=== PATIENT | female | born 1960 | race Caucasian/White ===

== ENCOUNTER 2017-02-25 16:26 | Inpatient (IN) | payer MEDICAID ==
[2017-02-25 17:19] LABS: BASOPHILS 0.3 % (0-2); EOSINOPHILS 2.1 % (0-7); HEMATOCRIT 36.2 % (36.0-48.0); IMMATURE GRANULOCYTES 0.2 % (0-5); LYMPHOCYTES 13.4 % (15-50); MCH 33.9 pg (26.0-34.0); MCHC 33.1 g/dL (31.0-37.0); MCV 102.3 fL (80.0-100.0); MEAN PLATELET VOLUME 9.3 fL (7.4-10.4); MONOCYTES 4.8 % (2-11); NEUTROPHILS 79.2 % (40-80); RBC 3.54 10x6/uL (4.00-5.40); RDW 12.7 % (11.5-14.5); WBC 14.5 10x3/uL (4.8-10.8)
[2017-02-25 17:20] LABS: UDS - AMPHET NEGATIVE QUAL (NEGATIVE); UDS - BARB NEGATIVE QUAL (NEGATIVE); UDS - BENZO POSITIVE QUAL (NEGATIVE); UDS - COCAINE NEGATIVE QUAL (NEGATIVE); UDS - OPIATE POSITIVE QUAL (NEGATIVE); UDS - PCP NEGATIVE QUAL (NEGATIVE); UDS - THC NEGATIVE QUAL (NEGATIVE)
[2017-02-25 17:23] LABS: APPEARANCE HAZY (CLEAR); BILIRUBIN NEGATIVE (NEGATIVE); COLOR YELLOW (YELLOW); GLUCOSE NEGATIVE (NEGATIVE); KETONE NEGATIVE (NEGATIVE); NITRITE POSITIVE (NEGATIVE); PROTEIN TRACE mg/dL (NEGATIVE); SPECIFIC GRAVITY 1.015 (1.005-1.020); UROBILINOGEN NORMAL (NORMAL)
[2017-02-25 17:23] LABS: PLATELET COUNT 389 10x3/uL (130-400)
[2017-02-25 17:24] LABS: BACTERIA MANY /hpf (NONE SEEN); EPITHELIAL CELLS 0-5 /hpf (0-5); RED CELLS - URINE 0-5 /hpf (0-5); WHITE CELLS - URINE >50 /hpf (0-5)
[2017-02-25 17:35] LABS: ALBUMIN 3.8 g/dL (3.4-5.0); ANION GAP 11.4 mmol/L (8-16); BILIRUBIN - TOTAL 0.21 mg/dL (0.2-1.3); CALCIUM 9.1 mg/dL (8.5-10.1); CARBON DIOXIDE 27.4 mmol/L (21.0-32.0); CREATININE - SERUM 1.6 mg/dL (0.6-1.3); POTASSIUM - SERUM 4.8 mmol/L (3.5-5.1); PROTEIN - SERUM 8.3 g/dL (6.4-8.2)
[2017-02-25] MEDS ORDERED: NEURONTIN 300300 MG PO (20:32)
[2017-02-25] MEDS ORDERED: NORVASC5 MG PO (20:33)
[2017-02-25] MEDS ORDERED: LEVOTHYROXINE100 MCG PO (20:33)
--- NOTE | 2017-02-25 21:25 | NUR ---
REC'D FROM [facility] IN ER. ALERT AND ORIENTED X2. REPORTING A HEADACHE. COULD NOT GIVE ME THE BEST HISTORY FOR DOCUMENTATION WILL PASS ON TO DAYS. STATED "I FEEL FUZZY" HAS A IV TO THE LEFT HAND THAT IS SALINE LOCKED. HAS A TOUNGE RING IN MOUTH. WAS ABLE TO GET TO THE RESTROOM WITH ASSISTANCE. NO DISTRESS NOTED. VITALS WERE 150/81, 96.2AX, 88, 16, 100% ONCE SHE GOT TO THE FLOOR. DENIED NEEDS AT THIS TIME. INSTRUCTED ON HOW TO USE THE CALL LIGHT AND TO CALL IF NEEDED ANYTHING, VERBALIZED UNDERSTANDING. BED LOW, LOCKED, CALL LIGHT IN REACH, ALARM ON.
--- NOTE | 2017-02-25 23:36 | NUR ---
RIPPED IV OUT OF LEFT HAND, CATHETER STILL INTACT, PLACED BANDAGE ON LEFT HAND. THERE IS NOW A 22G TO RIGHT FOREARM, IS PATENT AND IS SALINED LOCKED. TOLERATED WELL. INSTRUCTED THE IMPORTANCE OF KEEPING IT IN, VERBALIZED UNDERSTANDING. NO DISTRESS NOTED. BED LOW, LOCKED, CALL LIGHT IN REACH, ALARM ON.
[2017-02-26] VITALS (7 sets, daily range): BP systolic 121–150; BP diastolic 52–90; BMI 26.7; BMI 26.6
--- NOTE | 2017-02-26 03:25 | NUR ---
WAS MOANING, CHECKED ON HER IS ORIENTED TO PERSON, PLACE, AND SITUATION. HAS ONLY VOMITED ONCE MORE SINCE COMING ONTO THE FLOOR. NO DISTRESS NOTED. WILL CONT TO MONITOR. BED LOW, LOCKED, CALL LIGHT IN REACH, ALARM ON.
--- NOTE | 2017-02-26 08:05 | NUR ---
PATIENT IS RESTING QUIETLY WITH HER EYES CLOSED. NO S/S OF DISTRESS NOTED. PATIENT AWAKENS TO VERBAL STIMULI. PATIENT IS ORIENTED TO PERSON, PLACE, TIME, AND SITUATION. PATIENT STATES SHE IS VERY SLEEPY AND TIRED. PATIENT FALLING ASLEEP DURING ANY CONVERSATION. ASSESSMENT COMPLETED. SEE FLOWSHEET FOR ANY DETAILS. PATIENT DENIES NEEDS AT PRESENT TIME. CALL LIGHT IN PATIENT'S REACH. WILL MONITOR PATIENT.
--- NOTE | 2017-02-26 13:50 | NUR ---
PATIENT RESTING IN HER BED. PATIENT STATES SHE IS COLD. HEAT TURNED UP IN HER ROOM. SCHEDULED MEDICATIONS GIVEN TO PATIENT. PATIENT TOLERATED WELL. PATIENT STATES HER MOUTH IS REAL DRY AND REQUESTS A DRINK. LEMON GUIDIVILLE SODA GIVEN TO PATIENT IN HER LEFT HAND. PATIENT MOVING HER MOUTH UP AND DOWN AND WAVING HER RIGHT HAND. I ASKED PATIENT WHAT WAS WRONG OR IF SHE NEEDED ANYTHING AND SHE STATED THAT SHE NEEDED A DRINK. VERBALIZED TO PATIENT THAT SHE WAS HOLDING HER DRINK IN HER LEFT HAND. PATIENT LOOKED UP AT ME AND SAID, "OH", AND PUT DRINK TO HER MOUTH BUT HAD TROUBLE GETTING THE STRAW TO HER MOUTH. ASSISTED PATIENT WITH HER DRINK. CALL LIGHT IN PATIENT'S REACH. WILL CONTINUE TO MONITOR PATIENT.
--- NOTE | 2017-02-26 21:18 | NUR ---
REC'D SITTING UP IN BED. ALERT AND ORIENTED X3. DENIED PAIN AT THIS TIME. NO DISTRESS NOTED. DENIED NEEDS AT THIS TIME. INSTRUCTED TO CALL IF NEEDED ANYTHING, VERBALIZED UNDERSTANDING. BED LOW, LOCKED, CALL LIGHT IN REACH. NO DISTRESS NOTED.
[2017-02-27] VITALS: BP 148/79
--- NOTE | 2017-02-27 03:00 | NUR ---
PT RESTING QUIETLY, EYES CLOSED. RESP EVEN, UNLABORED. NO DISTRESS NOTED. CONTINUE STOREKEEPER STEWARD'S PLAN OF CARE.
[2017-02-27 04:00] VITALS: BP 133/78
[2017-02-27 05:19] LABS: BASOPHILS 0.6 % (0-2); EOSINOPHILS 2.7 % (0-7); HEMATOCRIT 34.3 % (36.0-48.0); HEMOGLOBIN 11.7 g/dL (12-16); IMMATURE GRANULOCYTES 0.2 % (0-5); LYMPHOCYTES 38.6 % (15-50); MCH 34.2 pg (26.0-34.0); MCHC 34.1 g/dL (31.0-37.0); MCV 100.3 fL (80.0-100.0); MEAN PLATELET VOLUME 9.7 fL (7.4-10.4); MONOCYTES 6.4 % (2-11); NEUTROPHILS 51.5 % (40-80); PLATELET COUNT 380 10x3/uL (130-400); RBC 3.42 10x6/uL (4.00-5.40); RDW 12.8 % (11.5-14.5); WBC 9.7 10x3/uL (4.8-10.8)
[2017-02-27 05:41] LABS: ALBUMIN 3.4 g/dL (3.4-5.0); BILIRUBIN - TOTAL 0.2 mg/dL (0.2-1.3); CARBON DIOXIDE 26.9 mmol/L (21.0-32.0); CREATININE - SERUM 1.2 mg/dL (0.6-1.3); PROTEIN - SERUM 7.5 g/dL (6.4-8.2)
[2017-02-27 05:42] LABS: ANION GAP 12.8 mmol/L (8-16); POTASSIUM - SERUM 3.7 mmol/L (3.5-5.1)
--- NOTE | 2017-02-27 07:25 | NUR ---
PATIENT IS RESTING QUIETLY ON HER RIGHT SIDE. EYES ARE CLOSED. RESPIRATIONS ARE EVEN AND UNLABORED. CALL LIGHT IN PATIENT'S REACH. GEOVANNA ALARM ON FOR PATIENT'S SAFETY. WILL MONITOR PATIENT.
--- NOTE | 2017-02-27 11:52 | NUR ---
PATIENT RESTING WITH HER EYES CLOSED. AWAKENS EASILY TO VERBAL STIMULI. SCHEDULED CELEXA 20 MG PO GIVEN TO PATIENT. PATIENT TOLERATED WELL WITH TEA. PATIENT DENIES NEEDS AT PRESENT TIME. GEOVANNA ALARM ON FOR PATIENT'S SAFETY. CALL LIGHT IN PATIENT'S REACH. WILL MONITOR.
[2017-02-27 12:09] VITALS: BP 134/76
--- NOTE | 2017-02-27 18:00 | NUR ---
PATIENT UP WALKING AROUND IN HER ROOM WITH JUST A HOT PINK T-SHIRT ON. PATIENT STATES SHE NEEDS TO GO TO THE BATHROOM. BLOOD NOTED ON PATIENT'S RIGHT ARM. PATIENT'S IV WAS NOT IN HER ARM, IT WAS IN THE FLOOR. PATIENT'S PURSE WAS LYING IN THE FLOOR BESIDE HER BED. ASSISTED PATIENT TO THE BATHRROM WHERE PATIENT VOIDED AND HAD A SMALL BM. PATIENT ORIENTED TO WHERE SHE WAS AT, BUT RESPONDING VERY SLOWLY TO QUESTIONS ASKED. ASSISTED PATIENT WHEN LOOKING FOR TOILET PAPER. PATIENT TOOK TOILET PAPER RADIOGRAPHER ANGIOGRAM OUT OF THE TRASH CAN AND STARTED WIPING HER BUTTOCKS WITH IT. VERBALIZED TO PATIENT THAT SHE HAD ALREADY WIPED HER JOYA AREA AND BUTTOCKS AND THAT SHE NOW WAS USING TRASH OUT OF THE TRASH CAN. PATIENT SHOOK HER HEAD AND LOOKED AT ME WITH A BLANK STARE. HOSPITAL SCRUB PANTS PROVIDED FOR PATIENT TO WEAR. ASSISTED PATIENT BACK TO HER BED AND HANDED HER PURSE AND BELONGINGS TO HER. DINNER TRAY AT PATIENT'S BEDSIDE. PATIENT STATES SHE DOES NOT WANT ANYTHING TO EAT OR DRINK. CALL LIGHT IN PATIENT'S REACH. GEOVANNA ALARM ON FOR PATIENT'S SAFETY. WILL MONITOR PATIENT.
--- NOTE | 2017-02-27 18:52 | NUR ---
IV RESITED TO L FOREARM. X1 ATTEMPT WITH 20 GUAGE IV. TOLERATED WELL. SECURED WITH TEGADERM AND TAPE. BED LOW, CALL LIGHT IN REACH, DENIES NEEDS. CPOC.
[2017-02-27 20:00] VITALS: BP 150/94
--- NOTE | 2017-02-27 22:05 | NUR ---
REC'D SITTING UP IN BED. ALERT AND ORIENTED TO PERSON, PLACE, AND TIME. REPORTED HAVING GENERALIZED PAIN ALL OVER BODY. DENIED NEEDS AT THIS TIME. INSTRUCTED TO CALL IF NEEDED ANYTHING, VERBALIZED UNDERSTANDING. PLACED BOX ALARM ON HER. NO DISTRESS NOTED. WILL CONT TO MONITOR. BED LOW, LOCKED, CALL LIGHT IN REACH, ALARM ON.
[2017-02-28 04:00] VITALS: BP 136/102
[2017-02-28 05:03] LABS: BASOPHILS 0.6 % (0-2); EOSINOPHILS 2.3 % (0-7); HEMATOCRIT 37.2 % (36.0-48.0); HEMOGLOBIN 12.6 g/dL (12-16); IMMATURE GRANULOCYTES 0.2 % (0-5); LYMPHOCYTES 37.9 % (15-50); MCHC 33.9 g/dL (31.0-37.0); MCV 100.3 fL (80.0-100.0); MEAN PLATELET VOLUME 9.6 fL (7.4-10.4); MONOCYTES 8.9 % (2-11); NEUTROPHILS 50.1 % (40-80); PLATELET COUNT 381 10x3/uL (130-400); RBC 3.71 10x6/uL (4.00-5.40); RDW 12.7 % (11.5-14.5); WBC 11.1 10x3/uL (4.8-10.8)
[2017-02-28 05:50] LABS: ALBUMIN 3.5 g/dL (3.4-5.0); ANION GAP 16.3 mmol/L (8-16); BILIRUBIN - TOTAL 0.25 mg/dL (0.2-1.3); CALCIUM 9.2 mg/dL (8.5-10.1); CARBON DIOXIDE 25.4 mmol/L (21.0-32.0); CREATININE - SERUM 1.3 mg/dL (0.6-1.3); POTASSIUM - SERUM 3.7 mmol/L (3.5-5.1); PROTEIN - SERUM 8.2 g/dL (6.4-8.2)
--- NOTE | 2017-02-28 07:35 | NUR ---
PATIENT IN BED EYES CLOSED RESTING QUIETLY. NO COMPLAINTS AT THIS TIME. IV INTACT. CALL LIGHT WITHIN REACH.
[2017-02-28 08:30] VITALS: BP 158/95
--- NOTE | 2017-02-28 08:30 | NUR ---
PATIENT IN BED WITH IV INTACT. NO COMPLAINTS AT THIS TIME. CALL LIGHT WITHIN REACH. FAMILY AT [facility].
--- NOTE | 2017-02-28 11:30 | NUR ---
PATIENT SITTING UP IN BED WITH NO COMPLAINTS. IV INTACT. CALL LIGHT WITHIN REACH.
[2017-02-28 13:25] VITALS: BP 140/77
[2017-02-28 16:00] VITALS: BP 129/77
--- NOTE | 2017-02-28 19:20 | NUR ---
RECIEVED SHIFT REPORT. PT IS LYING IN BED. ALERT AND ORIENTED AND ABLE TO VERBALIZE NEEDS. IV IS PATENT AND SALINE LOC AT THIS TIME. SCD'S OFF PER PT REQUEST. PT DENIES ANY PAIN AT THIS TIME. PT IS AMBULATORY BUT WAS INSTRUCTED TO CALL FOR ANY ASSISTANCE NEEDED. NO NEEDS ARE VERBALIZED AT THIS TIME. WILL CONTINUE TO MONITOR. SIDE RAILS ARE UP X 2. BED IS IN LOWEST POSITION. CALL LIGHT IS WITHIN REACH.
[2017-02-28 20:00] VITALS: BP 131/81
--- NOTE | 2017-02-28 20:25 | NUR ---
SHIFT ASSESSMENT COMPLETED. NIGHT MEDS GIVEN WITH NO PROBLEMS. NO NEEDS ARE VOICED. WILL MONITOR. SIDE RAILS X 2. BED LOW. CALL LIGHT IN REACH.
[2017-03-01 04:00] VITALS: BP 146/78
[2017-03-01 05:08] LABS: BASOPHILS 0.7 % (0-2); EOSINOPHILS 3.3 % (0-7); HEMATOCRIT 35.5 % (36.0-48.0); IMMATURE GRANULOCYTES 0.3 % (0-5); LYMPHOCYTES 42.1 % (15-50); MCH 33.9 pg (26.0-34.0); MCHC 33.8 g/dL (31.0-37.0); MCV 100.3 fL (80.0-100.0); MEAN PLATELET VOLUME 10.1 fL (7.4-10.4); MONOCYTES 10.5 % (2-11); NEUTROPHILS 43.1 % (40-80); PLATELET COUNT 323 10x3/uL (130-400); RBC 3.54 10x6/uL (4.00-5.40); RDW 12.7 % (11.5-14.5); WBC 11.5 10x3/uL (4.8-10.8)
[2017-03-01 05:28] LABS: ALBUMIN 3.4 g/dL (3.4-5.0); ANION GAP 16.2 mmol/L (8-16); BILIRUBIN - TOTAL 0.3 mg/dL (0.2-1.3); CALCIUM 9.4 mg/dL (8.5-10.1); CARBON DIOXIDE 25.5 mmol/L (21.0-32.0); CREATININE - SERUM 1.4 mg/dL (0.6-1.3); POTASSIUM - SERUM 3.7 mmol/L (3.5-5.1); PROTEIN - SERUM 7.3 g/dL (6.4-8.2)
--- NOTE | 2017-03-01 08:00 | NUR ---
PT ASSESSMENT COMPLETE AWAKE AND ALERT ORINETD X 3 LUNGS CLAER BILATERALLY HAS NO DISTRESS NTOED SEE FLOWSHEET FOR COMPLETE PHYSICAL ASSESSMENT.
[2017-03-01 08:25] VITALS: BP 116/71
--- NOTE | 2017-03-01 09:30 | NUR ---
IN ROOM TO GIVE MEDS PT ASKS THIS NURSE "HOW MUCH DRUGS WERE IN MY SYSTEM" EXPLAINED TO PT THAT A TOX SCREEN IS MEASURED IN MG PER DECILITER. AND IT IS A PERCENTAGE THIS NURSE IS UNABLE TO GIVE A SPICIFIC NUMBER OF PILLS TAKEN. PT EXPRESSD UNDERSANDING. UPON TALKING WITH PT SHE STATED THAT IT WAS "POSSIBLE" THAT SHE MIGHT HAVE BEEN HAVING A BAD DAY AND BOUGHT SOME PILLS FOR A PICK ME UP. PT ALSO STATED THAT IT IS SOMETHING SHE HAS DONE IN THE PAST. THIS NURSE SPOKE AT LENGTH WITH PT ABOUT ADDICTION AND RECOVERY ALSO ABOUT COPING. 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 EXPLAINED TO PT THAT ITS A GOOD THING TO LEAN TO ANN FOR COPING AND STRENGTH. PT STATES THAT SHE IS GLAD AT LEAST NOW SHES NOT ACCUSING PEOPLE OF DOING THINGS THAT ARE NOT REAL. THIS INFORMATION WAS PASSED TO NURSE PRACTIONER AND TO CASE MANAGMENT
--- NOTE | 2017-03-01 09:36 | NUR ---
Patient Name: SUSAN BAKER Admission Status: ER Accout number: [id number] Admission Date: 02-27-2017 : 1960 Admission Diagnosis: Attending: COLIN PALAFOX Current LOS: 2 Anticipated DC Date: Planned Disposition: Home Primary Insurance: [place] PRIVATE OPTIONS DARBY Discharge Planning Comments: CM met with patient to assess discharge planning needs. Patient stated that she is an employee who works and lives at [facility]. CM called and verified with Lamar the HR person at [facility]. Patient stated that she does not have any clue to how those drugs got in her system. She said others have access to her locked room, but she was not blaming anyone. She stated that she was going to talk to the police today. She has worked there for about a year per Lamar (HR at [facility]) and her title is [employer]. She said she was told that she was asleep for 2 days in her chair, and all she remembers was getting Narcan. 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 CM will talk MD to see how to proceed. She did state that she has too much to live for and she did not try to kill herself. CM will continue to follow and assist with discharge planning needs. PCP: Sheri Chowdhury on [address] [facility] Taryn Leiva ([phone]) Friend Nuclear Physics Teacher: Ping Valentin * Is the patient Alert and Oriented? Yes 0 * PCP SHERI 0 * [facility] * Preadmission Environment Snf 0 * Facility Name [facility] (WORKS AND LIV[facility] THERE) 0 * ADLs Independent 0 * Equipment None 0 * Community resources currently utilized None 0 * Additional services required to return to the preadmission environment? Yes 0 * Can the patient safely return to the preadmission environment? Yes 0 * Has this patient been hospitalized within the prior 30 days at any hospital? No 0 Grand Total: 0
[2017-03-01] MEDS ORDERED: CELEXA20 MG PO (10:55)
[2017-03-01] MEDS ORDERED: LEVAQUIN500 MG PO (10:56)
[2017-03-01] MEDS ORDERED: DIFLUCAN150 MG PO (11:08)
--- NOTE | 2017-03-01 12:15 | NUR ---
PT GIVEN DISCHARGE INSTRUCTIONS EXPRESSED UNDERSTANDING OF INSTRUCTIONS PIV D/C TIP INTACT DRESSING APPLIED TO CATH SITE.
--- NOTE | 2017-03-01 14:20 | CN ---
PATIENT NAME:SUSAN BAKER MEDICAL RECORD: [id number] : 58 LOCATION:[id number] ADMIT DATE: 02/27/17 ACCOUNT: [id number] CONSULTING PHYSICIAN: DIAZ CONTRERAS MD REFERRING PHYSICIAN: COLIN PALAFOX MD DATE OF CONSULTATION: 02/28/2017 PSYCHIATRIC CONSULTATION IDENTIFYING DATA: The patient is 56 years old and she was admitted to the hospital on a voluntary basis secondary to overdose. CHIEF COMPLAINT: None. HISTORY OF PRESENT ILLNESS: The patient was admitted to the hospital after being found obtunded. She had both an opiate and benzodiazepine in her urine. Checking the prescription drug monitoring program record, she has no prescriptions for these compounds and furthermore she denies that she took them. She continues to state that is the case. She denies a history of drug or alcohol abuse. She says she does not know what happened. She just woke up here and is being told that this occurred. She denies neurovegetative depressive symptoms. She denies psychotic symptoms. 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 Also, interestingly, she says she has never had a history of drug or alcohol abuse. MENTAL STATUS EXAMINATION: The patient is awake, alert and oriented to person, place, time and situation. Her mood is euthymic. Her affect is appropriate. Thought processes are goal directed. Memory, concentration, and abstraction abilities are intact. She denies any intent to harm herself or others as well as overt psychotic symptoms. ASSESSMENT: 1. Status post overdose. 2. Adjustment disorder with mixed emotional features. PLAN: At this time, the situation presents something of a mystery. The patient has no prescriptions on file for either of the items that she is overdosed on. She says she has no history of addiction. 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 I suspect strongly that she did abuse these drugs, that the use was illicit and that is what brought her to the hospital. If that is incorrect, then certainly the possibility of someone deliberately administering these compounds to her must become part of our thinking. Typically, people addicted to drugs do not like to share them either voluntarily or certainly not as a prank. I suppose the other possibility is that someone was trying to hurt her. I discussed this with her. She cannot, for the life of her, imagine who would be angry with or want to try and hurt her. Again, I have drawn back to possibility #1, she used these substances illicitly, is lying and does not want to be embarrassed or possibly lose her job. Assuming that is correct, it makes perfect sense. Assuming that the other option that someone gave these to her illicitly is likely I am strongly recommending that the police be called and that a criminal investigation be opened into who would do this to her. From our standpoint as far as acute dangerousness, I do not see any evidence that this was deliberate, I do not see any evidence of withdrawal from either substance and I think she is perfectly fine to be released from the hospital. As far as recommending any outpatient follow up, she is not depressed. She is not CONSULT REPORT [id number] SUSAN BAKER A psychotic and she certainly denies she has a substance abuse issue, so I have no recommendation for mental health followup. TRANSINT:[id number] Voice Confirmation ID: [id number] DOCUMENT ID: [id number] DIAZ CONTRERAS MD at 1420 CC: [id number] DICTATION DATE: 02/28/17 1443 SOLIDWORKS DRAFTER: 02/28/17 1502 DIS IN 03/01/17 [id number] [place] [address]
== END 2017-03-01 12:50 | disposition home or self-care (01) | DRG 917 ==
LOC: D.ER 16:26 → OBSVTIME 18:23 → D.MS 18:23
PROVIDERS: Emergency Medicine; ADMIT Family Medicine
DX: T40.601A Poisoning by unspecified narcotics, accidental (unintentional), initial encounter (principal); G92 Toxic encephalopathy; N39.0 Urinary tract infection, site not specified; T42.4X1A Poisoning by benzodiazepines, accidental (unintentional), initial encounter; F43.29 Adjustment disorder with other symptoms; F32.9 Major depressive disorder, single episode, unspecified; R13.10 Dysphagia, unspecified; I10 Essential (primary) hypertension; Z72.0 Tobacco use